=== PATIENT | male | born 1955 | race Caucasian/White ===

== ENCOUNTER 2016-10-10 19:27 | Inpatient (IN) | payer BC ==
[~2016-10-10] VITALS: Ht 182.9 cm; Wt 93.3 kg
[~2016-10-10 19:27] MED LIST: CIPROFLOXACIN500 MG PO; CURCUMIN1 GM MISC; CYCLOBENZAPRINE10 MG PO; FISH OIL 1,0001 EAC1 PO; MACUVEX CAPSUL1 EACH PO; METOPROLOL TART25 MG PO; NORCO 5-325 TA1 EACH PO; SAW PALMETTO160 MG PO
[2016-10-10] MEDS ORDERED: VALERIAN ROOT500 MG PO (19:57)
[2016-10-10] MEDS ORDERED: ASPIR 8181 MG PO (19:57)
[2016-10-10] MEDS ORDERED: LISINOPRIL-HCT1 EACH PO (19:57)
[2016-10-10] MEDS ORDERED: OMEGA-31000 MG PO (19:58)
[2016-10-10] MEDS ORDERED: MACUVITE EYE C1 EACH PO (19:58)
[2016-10-10] MEDS ORDERED: CLEOCIN HCL150 MG PO (19:59)
--- NOTE | 2016-10-10 23:47 | NUR ---
REPORT FROM WENDY. PT TO CCU PER STRETCHER. WALKED FROM STRETCHER TO BED AND TONYA WELL.
--- NOTE | 2016-10-11 00:07 | NUR ---
AMB TO BR TO VOID AND HAVE MELANA STOOL IN TOILET. TOLE WELL
--- NOTE | 2016-10-11 02:27 | NUR ---
SLEEPING OFF AND LAB. LAB WAS IN TO DRAW BLOOD.
--- NOTE | 2016-10-11 02:56 | NUR ---
AMB TO BR, TONYA WELL. VOIDED AND PASSED GAS.
--- NOTE | 2016-10-11 06:30 | NUR ---
DR MITCHELL IN TO SEE PT. PT THEN AMB TO BR TO VOID. HR UP TO 117 WHILE WIPING UP SPILL ON FLOOR, OTHERWISE TONYA WELL.
--- NOTE | 2016-10-11 08:00 | NUR ---
AWAKE AND ALERT. ASSESSMENT DONE. DENIES PAIN. TALKED WITH PATIENT ABOUT PLAN OF CARE FOR DAY. IS UNDERSTANDING. DULCOLAX PO GIVEN.
--- NOTE | 2016-10-11 09:00 | NUR ---
TO BR TO VOID, HAD MELENA STOOL. DENIES DIZZNESS WITH MOVEMENT.
--- NOTE | 2016-10-11 10:42 | NUR ---
DR. MCGOWAN HERE TO SEE PATIENT.
--- NOTE | 2016-10-11 12:00 | NUR ---
ASSESSMENT UNCHANGED. DENIES PAIN. DENIES DIZZINES WITH MOVEMENT.FRIEND IS IN ROOM.
[2016-10-11] MEDS ORDERED: METOPROLOL TART25 MG PO (15:44)
--- NOTE | 2016-10-11 16:19 | NUR ---
REVIEWED MEDICATIONS WITH PATIENT, MED RECONCILIATION COMPLETE.
--- NOTE | 2016-10-11 16:55 | NUR ---
REPORT TO MED-SURG.
--- NOTE | 2016-10-11 19:10 | NUR ---
BEDSIDE REPORT RECEIVED FROM OFFGOING NURSE. PT WALKING BACK TO BED FROM BATHROOM. FAMILY AT BEDSIDE. PT DENIES NEEDS AT THIS TIME. ORDER FOR NPO AT MIDNIGHT DISCUSSED. PT STATES UNDERSTANDING. CALL LIGHT WITHIN REACH.
--- NOTE | 2016-10-11 21:15 | CONS ---
[facility] [address], [place] [address] Signed DATE OF SERVICE: 10/11/2016 REFERRING PHYSICIAN: Dr. Jeannie Vallejo. CHIEF COMPLAINT: Nausea with melena. HISTORY OF PRESENT ILLNESS: Eddie is a 61-year-old gentleman, I met in 2015 for his colonoscopy. He did have colonic polyps removed at that time. He also had some external hemorrhoids. In the meantime, he does stay on his aspirin associated with his porcine aortic valve replacement. Yesterday, he noted some nausea and some black tarry stool. He came to emergency room for evaluation. He was admitted to the Internal Medicine Service overnight and hydrated. His initial hemoglobin was 14, it is down to 12. However, he has remained hemodynamically stable and no additional melena. However, the BUN was a little elevated at 43 with a creatinine of 1.13. Consequently, I have been asked to see him as a general surgeon desktop support consultant to consider upper and lower endoscopy. ALLERGIES: None. MEDICATIONS: Aspirin 81 mg 2 tablets p.o. daily, lisinopril/hydrochlorothiazide (20/12.5 mg) 1 tablet p.o. daily, MacuHealth vitamin 1 tablet p.o. daily, [place] fish oil 1000 mg capsule 1 tablet p.o. daily, valerian 500 mg p.o. daily, and clindamycin p.r.n. for dental procedures. 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 PAST SURGICAL HISTORY: Includes oral surgery as a child, tonsillectomy/adenoidectomy, and porcine aortic valve replacement in 2011. SOCIAL HISTORY: He likes 2 or 3 cups of coffee in a day. He quit smoking in 2008. He does not chew tobacco. He usually has a beer or glass of wine each day. He does not use drugs. 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 He is single and dose not have any children. His primary care physician is Dr. Dennis Young. His web retailer is Dr. Gino Blackwell who has since retired. FAMILY HISTORY: He apparently had seizure when he came off his bypass for heart surgery. His father had a pacemaker along with diabetes and some skin cancer. Mom had heart disease with her Electronically Signed By: KELTON MITCHELL MD 10/11/16 2115 PATIENT NAME: EDDIE WIN CONSULTATION DATE OF : 59 PHYSICIAN: KELTON MITCHELL MD REPORT #: [id number] REPORT IS CONFIDENTIAL AND NOT TO BE RELEASED WITHOUT AUTHORIZATION [address] [address] Signed mitral valve and tachycardia, stroke and skin cancer. REVIEW OF SYSTEMS: He had 10 systems reviewed today and really nothing new since I have seen him in 2015. PHYSICAL EXAMINATION: VITAL SIGNS: His blood pressure is 110/92, heart rate 78, respiratory rate 16, Temperature is 98.8 degrees. He is 6 feet tall and 93 kg. GENERAL: Eddie is a 61-year-old gentleman who appears healthy than his stated age. He is alert and awake and interactive. LUNGS: Clear to auscultation. HEART: The heart appears to be regular rate and rhythm without any murmurs. I can hear his aortic valve open and close, but it is not a true murmur per se. ABDOMEN: Benign. RECTAL EXAM: Not repeated. LABORATORY DATA: Celi is initial white count was 9.1, it is now 8.3. His initial hemoglobin was 14.0, it is now 12.0. His neutrophils were 66, it is now 63. His platelets were initially 127, they are 114. His BUN was 43. Creatinine is 1.13. INR is 1. Liver function tests are negative. His albumin is 3.7. RADIOGRAPHIC STUDIES: None. ASSESSMENT AND PLAN: Eddie is a 61-year-old gentleman who presents with a history of porcine aortic valve replacement, now on daily aspirin. He has had some nausea and melena for a day. He looks like he is a little anemic as well. He has been anemic in the past. I explained to Eddie we need to perform both the upper and lower endoscopy , particularly since he has had polyps before. We will put him through a clear liquid diet and his laxatives today and we will add him to our schedule tomorrow. He is very familiar with endoscopy. He has expressed understanding and would like to proceed. MD WONG Sinha/Modl /[id number] Electronically Signed By: KELTON MITCHELL MD 10/11/16 2115 PATIENT NAME: EDDIE WIN CONSULTATION DATE OF : 59 PHYSICIAN: KELTON MITCHELL MD REPORT #: [id number] REPORT IS CONFIDENTIAL AND NOT TO BE RELEASED WITHOUT AUTHORIZATION [facility] [address] [place], [place] [address] Signed cc: Dennis Young Electronically Signed By: KELTON MITCHELL MD 10/11/16 2115 PATIENT NAME: EDDIE WIN CONSULTATION DATE OF : 59 PHYSICIAN: KELTON MITCHELL MD REPORT #: [id number] REPORT IS CONFIDENTIAL AND NOT TO BE RELEASED WITHOUT AUTHORIZATION
--- NOTE | 2016-10-11 21:30 | NUR ---
PT RESTING IN BED WITH EYES CLOSED. APPEARS TO BE SLEEPING. WAKES EASILY. PT ASSESSMENT COMPLETED. PT DENIES PAIN OR NAUSEA. STATES THAT BM'S HAVE BECOME LIQUID, AND ARE NEARLY CLEAR. PT STATES CONCERN REGARDING WHAT HE FEELS IS DECREASED URINE OUTPUT. PT REASSURED THAT HIS URINE OUTPUT WILL BE MONITORED. PT STATES UNDERSTANDING. PT DENIES OTHER NEEDS. CALL LIGHT WITHIN REACH.
--- NOTE | 2016-10-12 00:10 | NUR ---
PT RESTING IN BED WITH EYES CLOSED. APPEARS TO BE SLEEPING. WAKES EASILY UPON MAINTENANCE AND REPAIR WORKER'S ENTRY INTO ROOM. PT'S WATER TAKEN FROM BEDSIDE. PT STATES UNDERSTANDING. PT DENIES PAIN OR NAUSEA. DENIES OTHER NEEDS AT THIS TIME. CALL LIGHT USE REINFORCED FOR PT NEEDS. PT STATES UNDERSTANDING. CALL LIGHT WITHIN REACH.
--- NOTE | 2016-10-12 00:41 | NUR ---
PT CALLS, STATES THAT IV IS BEEPING. DENIES PAIN OR NAUSEA. DENIES OTHER NEEDS. CALL LIGHT WITHIN REACH.
--- NOTE | 2016-10-12 02:23 | NUR ---
PT RESTING IN BED WITH EYES CLOSED. WAKES EASILY UPON ENTRY INTO ROOM. PT ASSESSMENT COMPLETE. PT DENIES PAIN OR NAUSEA. ASSESSMENT UNCHANGED FROM PREVIOUS ASSESSMENT. PT DENIES NEEDS AT THIS TIME. CALL LIGHT WITHIN REACH.
--- NOTE | 2016-10-12 04:43 | NUR ---
PT REPORTS THAT HE WAS UP TO USE THE BATHROOM, NO URINE SAVED. REMINDED PT THAT WE WOULD LIKE TO CONTINUE TO MEASURE URINE. PT STATES HE WAS NOT AWARE. PT DENIES PAIN, NAUSEA. DENIES OTHER NEEDS. CALL LIGHT WITHIN REACH.
--- NOTE | 2016-10-12 05:32 | NUR ---
PT SLEPT WELL THIS SHIFT. NO REPORTS PAIN OR NAUSEA. BOWEL PREP COMPLETED. TELE # 4. HR 60'S TO 70'S. EGD AND COLONOSCOPY TODAY, PT NPO SINCE MIDNIGHT. REMIND PT TO MEASURE URINE VERSUS FLUSHING. INDEPENDENT IN ROOM. D5 1/2 NS + 20K @ 125.
--- NOTE | 2016-10-12 07:30 | NUR ---
Bedside report received from Roxie CURRIE. Pt awake and visiting with . Anxious for shower this morning. Spoke with Alejandra NUÑEZ about plan of care for patient today. Reinforced with patient to measure urine in urinal. Clindamycin to be given telephone exchange operator to OR. Tele [address] HR 77.
--- NOTE | 2016-10-12 10:48 | NUR ---
10/12/16 1048 Prema Haynes report from dillon guillermo.
--- NOTE | 2016-10-12 10:59 | NUR ---
PT SHOWERED AND IS NOW IN SURGERY, WILL GET VITALS UPON RETURN
--- NOTE | 2016-10-12 11:45 | NUR ---
pt returned to room 112 from surgery at 1145. pt awake but groggy. Dr Vallejo seeing pt now. Gastric ulcer and hemorrhoids found in scope. Tele [address]
[2016-10-12] MEDS ORDERED: OMEPRAZOLE20 MG PO (11:51)
--- NOTE | 2016-10-12 12:25 | NUR ---
TELE REMOVED PER MD ORDER. CONTINUOUS PULSE OX ON. SATURATING >92% ON ROOM AIR. RADHA PHARMACIST TALKING TO PATIENT NOW.
--- NOTE | 2016-10-12 14:42 | NUR ---
PT IS LYING IN BED WAKING UP FROM NAP. PT DID NOT NEED ANYTHING AT THE MOMENT
--- NOTE | 2016-10-12 14:48 | NUR ---
PT SLEEPY THIS AFTERNOON. WAITING FOR TO ARRIVE TO GO OVER DISCHARGE PAPERWORK.
--- NOTE | 2016-10-12 16:20 | OR ---
[facility] [address] [place], [place] [address] Signed DATE OF PROCEDURE: 10/12/16 PREOPERATIVE DIAGNOSES Daily aspirin use. Nausea. Melena. Personal history of colonic polyps in 2015. Anemia with hemoglobin of 12.0. External hemorrhoids. POSTOPERATIVE DIAGNOSES Antral gastric ulcer. Moderate distal gastritis. Moderate external hemorrhoids. PROCEDURE EGD with CLOtest and biopsies of the antrum. Colonoscopy without biopsy. ESTIMATED BLOOD LOSS: None. INDICATIONS Eddie is a 61-year-old gentleman who actually came to us in 2014 for colonoscopy. He had external hemorrhoids at that time along with some adenomatous polyps. More recently, he has been using aspirin on a daily basis. He developed some nausea and melena. He ended up coming to the emergency room for evaluation. He was found to be anemic with a hemoglobin of 12.0. He was admitted to the Internal Medicine Service. I was asked to see him as a general surgeon traffic control supervisor for consideration of upper and lower endoscopy. In the meantime, Eddie has been well. He has been hemodynamically stable. He went through his bowel prep yesterday and he presents this morning for his upper and lower endoscopy. He said he has not had any further black tarry stool nor any bright red blood per rectum. I explained to Eddie the nature of the upper endoscopy relative to his previous colonoscopy. He understands there is risk including but not limited to gas bloating, crampy abdominal pain, bleeding, perforation requiring surgery, and missed diagnosis. He also understands the need for IV conscious sedation. He had expressed understanding and wished to proceed. PROCEDURE NOTE Eddie was taken into our endoscopy suite and placed in the supine semi-recumbent position. The posterior oropharynx was anesthetized with Hurricaine spray. A bite block was utilized for the case. He was given divided doses o f 9 mg of Versed and 200 mcg of Fentanyl to cover both procedures. The adult gastroscope was introduced and advanced Electronically Signed By: KELTON MITCHELL MD 10/12/16 1620 PATIENT NAME: EDDIE WIN OPERATIVE REPORT DATE OF : 59 PHYSICIAN: KELTON MITCHELL MD REPORT #: [id number] REPORT IS CONFIDENTIAL AND NOT TO BE RELEASED WITHOUT AUTHORIZATION [facility] [address], [place] [address] Signed under direct visualization of the camera out to the bottom of the stomach. He had moderate to severe gastritis with associated edema. It took us a few minutes with contraction of the stomach, but we eventually could see his gastric ulcer. Fortunately, it is not bleeding at this time. We then passed the scope into the pyloric channel out into the duodenum. The duodenum and pyloric channel were unremarkable. We came back into the antrum and took a biopsy for pathologic review as well as CLOtest. We had taken pictures throughout for photodocumentation. The incisura body and fundus of the stomach were unremarkable. We did not see a hiatal hernia. There is no gastric or esophageal varices. The scope was withdrawn up through the area of the GE junction, which was compliant without stricture. He has minimal disruption to a Z-line. No Fowler's mucosa, no distal esophagitis. The middle and upper esophagus were unremarkable. After this, the gas was suctioned out and the gastroscope removed. Eddie tolerated procedure quite well. Eddie was then rotated into the left lateral decubitus position. He was maintained on his IV sedation with the Versed and Fentanyl. A digital rectal exam was performed. He does have 2 moderate-sized external hemorrhoids. The adult colonoscope was then introduced and advanced all around into the cecum under direct visualization of the camera without difficulty. His prep was good. It took a few minutes to get through his long redundant colon along with some abdominal compression and additional sedation. After this, the scope was slowly withdrawn. We found no pathology throughout the entire colon or the rectum. Upon retroflexion of scope, we did not see any pathology above the anal canal. After this, the gas was suctioned out and the colonoscope removed. Eddie tolerated the procedure quite well. RECOMMENDATIONS Eddie will be returned to the Internal Medicine service on his proton pump inhibitor. He needs to take his proton pump inhibitor twice a day for 2 months and discontinue the aspirin for 2 months. I will see him back in my office in 7-14 days after his discharge. MD WONG Sinha/Yi /[id number] Electronically Signed By: KELTON MITCHELL MD 10/12/16 1620 PATIENT NAME: EDDIE WIN OPERATIVE REPORT DATE OF : 59 PHYSICIAN: KELTON MITCHELL MD REPORT #: [id number] REPORT IS CONFIDENTIAL AND NOT TO BE RELEASED WITHOUT AUTHORIZATION [address] [address] Signed cc: Dennis Young MD Electronically Signed By: KELTON MITCHELL MD 10/12/16 1620 PATIENT NAME: AUDELIAEDDIE OPERATIVE REPORT DATE OF : 59 PHYSICIAN: KELTON MITCHELL MD REPORT #: [id number] REPORT IS CONFIDENTIAL AND NOT TO BE RELEASED WITHOUT AUTHORIZATION
== END 2016-10-12 15:35 | disposition home or self-care (01) | DRG 379 ==
LOC: ED 19:27 → MS 21:59 → CCU 21:59 → MS 10-11 16:27
PROVIDERS: Colon & Rectal Surgery; ADMIT Internal Medicine
PROC: 0DB68ZX Excision of Stomach, Via Natural or Artificial Opening Endoscopic, Diagnostic (ICD-10-PCS; principal; 2016-10-12 11:15)
PROC: 0DJD8ZZ Inspection of Lower Intestinal Tract, Via Natural or Artificial Opening Endoscopic (ICD-10-PCS; 2016-10-12 11:15)
DX: K25.4 Chronic or unspecified gastric ulcer with hemorrhage (principal); K29.70 Gastritis, unspecified, without bleeding; D64.9 Anemia, unspecified; I10 Essential (primary) hypertension; K64.4 Residual hemorrhoidal skin tags; H53.2 Diplopia; Z79.82 Long term (current) use of aspirin; Z95.2 Presence of prosthetic heart valve; Z86.010 Personal history of colon polyps; Z87.891 Personal history of nicotine dependence
CPT/HCPCS: 36415; 80048; 80053; 83735; 85025; 85610; 85730; 86677; 86850; 86900; 86901; 86920; 96361; 96374; 99152; 99153; 99285; J2250; J3010; J3475; J3490; J7030; J7120

== ENCOUNTER 2017-06-24 15:56 | Emergency (ER) | payer BC ==
[~2017-06-24] VITALS: Ht 182.9 cm; Wt 95.2 kg
[~2017-06-24 15:56] MED LIST changes: +ASPIR 8181 MG PO; +CLEOCIN HCL150 MG PO; +LISINOPRIL-HCT1 EACH PO; +MACUVITE EYE C1 EACH PO; +OMEGA-31000 MG PO; +OMEPRAZOLE20 MG PO; +VALERIAN ROOT500 MG PO
--- NOTE | 2017-06-24 19:26 | EKG ---
[facility] [address] [facility] [place] [address] Signed Sinus rhythm with frequent premature ventricular complexes Possible Left atrial enlargement Left axis deviation Abnormal ECG No previous ECGs available Confirmed by JACOBO MCGOWAN MD ([id number]) on 06/24/2017 7:26:43 PM Electronically Signed By: JACOBO MCGOWAN MD 06/24/17 1926 PATIENT NAME: AUDELIAKIKE Electrocardiogram DATE OF : 59 PHYSICIAN: JACOBO MCGOWAN MD REPORT #: [id number] REPORT IS CONFIDENTIAL AND NOT TO BE RELEASED WITHOUT AUTHORIZATION
== END 2017-06-24 17:05 | disposition home or self-care (01) ==
LOC: ED 15:56
DX: R07.89 Other chest pain (principal); Z87.891 Personal history of nicotine dependence; Z79.899 Other long term (current) drug therapy
CPT/HCPCS: 71045; 80053; 83880; 84484; 85025; 85610; 93005; 93010; 99284

== ENCOUNTER 2020-06-29 14:43 | Emergency (ER) | payer BC ==
[~2020-06-29] VITALS: Ht 182.9 cm; Wt 95.2 kg
--- NOTE | 2020-06-30 15:10 | EKG ---
[facility] [address] [facility] [place] [address] Signed Normal sinus rhythm Inferior infarct , age undetermined Abnormal ECG When compared with ECG of 24-JUN-2017 15:59, Junctional rhythm has replaced Sinus rhythm Inferior infarct is now present Confirmed by JACOBO MCGOWAN MD ([id number]) on 06/30/2020 3:10:14 PM Electronically Signed By: JACOBO MCGOWAN MD 06/30/20 1510 PATIENT NAME: AUDELIAKIKE ISAAC Electrocardiogram DATE OF : 59 PHYSICIAN: JACOBO MCGOWAN MD REPORT #: [id number] REPORT IS CONFIDENTIAL AND NOT TO BE RELEASED WITHOUT AUTHORIZATION
== END 2020-06-29 18:27 | disposition home or self-care (01) ==
LOC: ED 14:43
DX: R55 Syncope and collapse (principal); H53.9 Unspecified visual disturbance; R51.9 Headache, unspecified; Z79.899 Other long term (current) drug therapy
CPT/HCPCS: 70450; 71045; 80053; 81001; 84484; 85025; 93005; 93010; 99285-25

== ENCOUNTER 2021-12-29 07:22 | Day surgery (SDC) | payer BC ==
[~2021-12-29] VITALS: Ht 182.9 cm; Wt 92.3 kg
[2021-12-29] MEDS ORDERED: BUSPIRONE HCL10 MG PO (07:39)
[2021-12-29] MEDS ORDERED: VISTARIL25 MG PO (07:39)
[2021-12-29] MEDS ORDERED: MELATONIN1 MG PO (07:40)
--- NOTE | 2021-12-29 09:05 | NUR ---
12/29/21 09 Tanya Bean 2726 PT ARRIVED IN PACU SLEEPY WITH NO C/O'S. ABD SOFT. 0900 SITTING UP IN BED SIPPING ON JUICE.
--- NOTE | 2021-12-29 10:20 | OR ---
[facility] [address] [place], [place] [address] Signed DATE OF OPERATION: 12/29/2021 SURGEON: Kelton Mitchell MD PREOPERATIVE DIAGNOSES: 1. Personal history of hyperplastic and tubular adenomatous polyps in 2015 at the age of 59. 2. Moderate external hemorrhoids. POSTOPERATIVE DIAGNOSES: 1. 5 mm polyp at 18 cm/rectum. 2. Moderate external hemorrhoids. PROCEDURE: Colonoscopy with hot biopsy. ESTIMATED BLOOD LOSS: None. INDICATIONS: Eddie is a 66-year-old gentleman who is returning for a followup colonoscopy. He had a screening colonoscopy in 2014 at the age of 59. He had several small hyperplastic polyps and tubular adenomatous polyps removed. No polyp was over 5 mm in diameter. He has moderate sized bilateral external hemorrhoids. He has done well with Versed and fentanyl. He was asked to follow up in 5 years. He developed melena and anemia while taking aspirin in 2017. I helped him with upper and lower endoscopy at that time. He had gastritis and several small antral gastric ulcers. The CLOtest was negative for H pylori. Again, he had moderate-sized bilateral external hemorrhoids. Again, he did well with Versed and fentanyl. We asked him to follow up in 5 years. In the meantime, he did undergo his radical prostatectomy at our [facility]. He had been cleared for the surgery by his vein pumper, Dr. Jerardo Lawler at [facility] in [place], [place]. His aortic valve consists of a porcine prosthesis and is now approaching 10 years of age. He also has aortic arch replaced. There is no family history of colon cancer or polyps. He said he eats a largely of vegetarian diet. He has no lower GI complaints. In the office, I gave him a pamphlet on colonoscopy. He understands the nature of that test. There is risk including, but not limited to gas bloating, crampy abdominal pain, bleeding, perforation requiring surgery, and missed diagnosis. We also reviewed the need for IV conscious sedation. He said he had a seizure when he came off the bypass pump but he has done well with all his other surgeries. He has also done well with Versed and fentanyl in the past. He had Electronically Signed By: KELTON MITCHELL MD 12/29/21 1020 PATIENT NAME: EDDIE WIN OPERATIVE REPORT DATE OF : 59 REPORT #: [id number] PHYSICIAN: KELTON MITCHELL MD PCP: AMY INFANTE REPORT IS CONFIDENTIAL AND NOT TO BE RELEASED WITHOUT AUTHORIZATION [facility] [address] [place], [place] [address] Signed expressed understanding and wished to proceed. PROCEDURE NOTE: Eddie was taken into our endoscopy suite and placed in the left lateral decubitus position. He was given a total of 6 mg of Versed and 150 mcg of fentanyl to cover the case. A digital rectal exam was performed and again he has moderate bilateral external hemorrhoids. He had good sphincter tone. The prostate gland is now surgically absent. I could feel the staple line on the one side of the bed of the prostate. The adult colonoscope had been introduced and advanced under direct visualization up to the mid right colon. It took a little extra sedation in rotating Eddie into the supine position in order to get the camera directly into the cecum itself. His prep was good. We could easily see the appendiceal orifice and ileocecal valve. The scope was then slowly withdrawn. We took pictures throughout for photodocumentation. We found just a single polyp at 18 cm at the top of the rectum. It was easily removed with a hot biopsy forceps. There was no diverticula. Upon retroflexion of the scope, we did not see any additional pathology above the anal canal. After this, the gas was suctioned out and the colonoscope removed. Eddie tolerated the procedure quite well. RECOMMENDATIONS: Eddie will follow up my office in 7 to 14 days to review his results. I suspect he will stay on the 5-year rotation. Kelton Mitchell MD [facility]/MODL /[id number] cc: MD Amy Howard FNP Copies: KELTON MITCHELL MD ~ Electronically Signed By: KELTON MITCHELL MD 12/29/21 1020 PATIENT NAME: EDDIE WIN OPERATIVE REPORT DATE OF : 59 REPORT #: [id number] PHYSICIAN: KELTON MITCHELL MD PCP: AMY INFANTE REPORT IS CONFIDENTIAL AND NOT TO BE RELEASED WITHOUT AUTHORIZATION
--- NOTE | 2021-12-31 21:48 | PATH ---
[facility] [address] [place], [place] [address] Signed SPECIMEN(S): A COLON POLYP AT 18 CM SPECIMEN SOURCE: A. COLON POLYP AT 18 CM CLINICAL HISTORY: Personal history of colon polyps; prostate cancer. Postop diagnosis: Colon polyp, external hemorrhoids FINAL PATHOLOGIC DIAGNOSIS: Colon, 18 cm, polypectomy: - Hyperplastic polyp. - There is no evidence of dysplasia or malignancy. TWK:em:C2NR MICROSCOPIC EXAMINATION: Histologic sections of all submitted blocks are examined by light microscopy. These findings, together with the gross examination, support the pathologic diagnosis. GROSS DESCRIPTION: The specimen, labeled "CM colon polyp at 18 cm," is received in formalin and consists of one arita soft tissue fragment that measures 0.3 cm in greatest dimension. The specimen is entirely submitted in cassette (A1). HH (under the direct supervision of a pathologist) The Gross Description was prepared using a voice recognition system. The report was reviewed for accuracy; however, sound-alike word errors, addition and/or deletions may occur. If there is any question about this report, please contact Client Services. PERFORMING LABORATORY: The technical component was performed by [facility], [address] [place] [id number] (CLIA# [id number]). The professional interpretation was performed by [facility], [facility], [address] [place] [address] (CLIA#: [id number]). Diagnostician: Jorge Reyes MD Pathologist Electronically Signed 12/31/2021 PATIENT NAME: KIKE WIN PATHOLOGY DATE OF : 59 REPORT #: [id number] PHYSICIAN: [facility] PCP: CONSTANTINE INFANTE REPORT IS CONFIDENTIAL AND NOT TO BE RELEASED WITHOUT AUTHORIZATION [address] [address] Signed Copies: ~ PATIENT NAME: KIKE WIN PATHOLOGY DATE OF : 59 REPORT #: [id number] PHYSICIAN: [facility] PCP: CONSTANTINE INFANTE REPORT IS CONFIDENTIAL AND NOT TO BE RELEASED WITHOUT AUTHORIZATION
== END 2021-12-29 09:20 | disposition home or self-care (01) ==
LOC: OPS 07:22 → DS 07:22 → OPS 08:15
PROVIDERS: ATTEND Colon & Rectal Surgery
PROC: 0D5E8ZZ Destruction of Large Intestine, Via Natural or Artificial Opening Endoscopic (ICD-10-PCS; principal; 2021-12-29 08:15)
DX: K63.5 Polyp of colon (principal); K64.4 Residual hemorrhoidal skin tags; I10 Essential (primary) hypertension; J44.9 Chronic obstructive pulmonary disease, unspecified; E55.9 Vitamin D deficiency, unspecified; Z86.010 Personal history of colon polyps; Z90.79 Acquired absence of other genital organ(s); Z95.3 Presence of xenogenic heart valve; Z87.891 Personal history of nicotine dependence; Z79.82 Long term (current) use of aspirin; Z88.4 Allergy status to anesthetic agent; Z85.46 Personal history of malignant neoplasm of prostate
CPT/HCPCS: 99153; G0500; J0690; J2250; J3010; J7121

== ENCOUNTER 2023-09-23 18:01 | Emergency (ER) | payer BC ==
[~2023-09-23] VITALS: Ht 182.9 cm; Wt 96.3 kg
[~2023-09-23 18:01] MED LIST changes: +BUSPIRONE HCL10 MG PO; +MELATONIN1 MG PO; +VISTARIL25 MG PO
[2023-09-23] MEDS ORDERED: HYDROXYZINE HCL50 MG PO (18:26)
[2023-09-23 18:28] LABS: BASOPHILS 0.6 % (0-2); EOSINOPHILS 1.6 % (0-6); HEMATOCRIT 47.8 % (35.0-50.0); HEMOGLOBIN 16.4 g/dL (12.0-18.0); LYMPHOCYTES 34.1 % (24-44); MCH 31.6 (27-36); MCHC 34.3 g/dl (30-36); MCV 92.4 fl (81-99); MONOCYTES 12.4 % (0-12); NEUTROPHILS 51.3 % (39-80); PLATELET COUNT 164 K/uL (140-440); RBC 5.17 M/ul (4.3-5.7); RDW 14.8 (10.5-15.0)
[2023-09-23 18:56] LABS: ALBUMIN 3.7 g/dL (3.4-5.0); ALBUMIN/GLOBULIN RATIO 1.09 (1.1-2.4); ANION GAP 9.9 (7-21); BILIRUBIN, TOTAL 0.5 ng/dL (0.2-1.0); BUN/CREATININE RATIO 13.76 (6.0-28.6); CALCIUM 8.5 mg/dL (8.5-10.1); CREATININE, SERUM 1.09 mg/dL (0.70-1.30); POTASSIUM 3.9 mmol/L (3.5-5.1); PROTEIN, TOTAL 7.1 g/dL (6.4-8.2)
[2023-09-23 19:15] LABS: INFLUENZA B NAA NEGATIVE (NEGATIVE); RESPIRATORY SYNCYTIAL VIR NAA NEGATIVE (NEGATIVE)
[2023-09-23] MEDS ORDERED: lisinopriL 20 MG TAB PO ONE (19:15)
[2023-09-23] MEDS ORDERED: LISINOPRIL-HCT1 EAC1 PO (20:03)
[2023-09-23 20:21] VITALS: BP 152/110
--- NOTE | 2023-09-25 09:42 | EKG ---
[facility] [address] [facility] [place] [address] Signed Sinus rhythm with premature atrial complexes Left axis deviation Inferior infarct (cited on or before 29-JUN-2020) Abnormal ECG When compared with ECG of 29-JUN-2020 15:33, premature atrial complexes are now present Confirmed by JOAN OLIVAS MD ([id number]) on 09/25/2023 9:42:14 AM Electronically Signed By: JOAN OLIVAS 09/25/23 0942 PATIENT NAME: KIKE WIN Electrocardiogram DATE OF : 59 PHYSICIAN: JOAN OLIVAS REPORT #: [id number] REPORT IS CONFIDENTIAL AND NOT TO BE RELEASED WITHOUT AUTHORIZATION
== END 2023-09-23 20:16 | disposition home or self-care (01) ==
LOC: ED 18:01
PROVIDERS: Emergency Medicine
DX: I10 Essential (primary) hypertension (principal); R06.02 Shortness of breath; Z95.2 Presence of prosthetic heart valve; Z79.899 Other long term (current) drug therapy
CPT/HCPCS: 36415; 71046; 80053; 83735; 83880; 84484; 85025; 87502; 93005; 93010; 99285-25; U0002